=== PATIENT | male | born 1975 | race Caucasian/White ===

== ENCOUNTER 2022-02-27 14:40 | Outpatient (CLI) | payer OTHER, SELFPAY ==
--- NOTE | ~2022-02-27 | US_ITS ---
US venous doppler [facility] DATE: 02/27/2022 16:21 INDICATION: Lower extremity deep venous thrombosis TECHNIQUE: Real-time and color flow imaging and Doppler analysis of the veins of both lower extremiti es COMPARISON: None FINDINGS: Right lower extremity: The right greater saphenous vein is patent. There is spontaneous and phasic fl ow and normal augmentation and color flow signal and normal compression of the deep veins of the righ t leg. Left lower extremity: The left greater saphenous vein is patent. There is spontaneous and phasic flow and normal augmentation and color flow signal of the left common femoral and femoral veins. Thrombus is identified in the left popliteal, posterior tibial peroneal veins, with incomplete compre ssion. IMPRESSION: Deep venous thrombosis involving left popliteal, posterior tibial and peroneal veins Reviewed, dictated and finalized at [facility]. Reviewed, dictated and finalized at [facility]. IMPRESSION: Deep venous thrombosis involving left popliteal, posterior tibial a nd peroneal veins
== END 2022-02-27 14:41 | disposition home or self-care (01) ==
LOC: ANHIMG 14:44
PROVIDERS: PCP Internal Medicine; Visit Provider Internal Medicine
DX: I82.433 Acute embolism and thrombosis of popliteal vein, bilateral (principal); I82.443 Acute embolism and thrombosis of tibial vein, bilateral; I82.453 Acute embolism and thrombosis of peroneal vein, bilateral
CPT/HCPCS: 93970

== ENCOUNTER 2024-03-23 18:37 | Emergency (ER) | payer OTHER, SELFPAY ==
[2024-03-23 18:40] VITALS: BP 140/92; PULSE 98; RESP 14; TEMP 36.6; O2SAT 98
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
[2024-03-23] MEDS: TETANUS,DIPHTHERIA,AC PERTUSSIS ADULT 0.5 ML (ADACEL) IM (19:10)
== END 2024-03-23 19:35 | disposition home or self-care (01) ==
PROVIDERS: Emergency Provider Internal Medicine Critical Care Medicine; PCP Internal Medicine
DX: T23.252A Burn of second degree of left palm, initial encounter (principal); T31.0 Burns involving less than 10% of body surface; Z23 Encounter for immunization; X08.8XXA Exposure to other specified smoke, fire and flames, initial encounter
CPT/HCPCS: 90471; 90715; 99283